=== PATIENT | female | born 1980 | race Caucasian/White ===

== ENCOUNTER → 2023-12-27 08:16 | Outpatient (REF) | payer OTHER, SELFPAY | LOC: HWWDC 08:16 | PROVIDERS: ATTENDING PHYSICIAN Obstetrics & Gynecology; FAMILY PHYSICIAN Internal Medicine | DX: Z12.31 Encounter for screening mammogram for malignant neoplasm of breast (principal) | CPT/HCPCS: 77063; 77067 ==

== ENCOUNTER 2024-08-23 17:44 | Emergency (ER) | payer OTHER, SELFPAY ==
[2024-08-23 17:45] VITALS: BP 156/98
[2024-08-23 19:00] VITALS: BP 119/75
--- NOTE | 2024-08-23 19:29 | ED.GENMED ---
History of Present Illness
General
Chief Complaint: Musculo-Skeletal Complaint
Source: patient
Exam Limitations: none
Time Seen by Provider: 08/23/24 18:31
Nursing documentation reviewed up to this point in time: agreed with
History of Present Illness
History of Present Illness:
44-year-old female presenting to the emergency department today after her dog jumped into her nose prior to arrival causing a nosebleed and a frontal headache. Denies loss of consciousness no numbness weakness or neck pain. Bleeding has resolved
upon arrival here to the ER.
Past History
Past History
ED Past Medical History: None
ED Past Surgical History: None
Social History
Tobacco: Non-smoker
Alcohol: None
Drug: None
Personal:
Living: with family
Review of Systems
Review of Systems
Allergies reviewed?: Yes
All Other Systems: ROS reviewed and negative except as documented in HPI and ROS
Phy Exam
Physical Exam
Physical Exam:
GENERAL: Alert , in no apparent distress
EYE: pupils equal and reactive
NECK: Supple, no significant adenopathy. No posterior neck pain good range of motion of the head without significant midline posterior neck pain.
ENT: Small cut to the nasal septum bilaterally with no active bleeding small clot. No nasal septal hematoma nasal bridge is midline minimal tenderness to the area normal extraocular movements no tenderness at the orbital rim. o/p clr, mmm.
CARDIAC: Regular rate and rhythm .
LUNGS: Clear breath sounds bilaterally, no acute respiratory distress, no wheezes/rales/rhonchi
ABDOMEN: Soft, without focal tenderness, no r/g, no cvat
NEUROLOGICAL: Alert and oriented, no focal neuro deficits
SKIN: Warm and dry, skin intact.
MUSCULOSKELETAL: No edema, well perfused.
PSYCH: Normal and appropriate interaction.
Course
Vital Signs
Initial and Last Documented VS:
Initial Vital Signs
Temp Pulse Resp BP Pulse Ox
98.4 F 85 16 156/98 100
08/23/24 17:45 08/23/24 17:45 08/23/24 17:45 08/23/24 17:45 08/23/24 17:45
Last Documented Vital Signs
Temp Pulse Resp BP Pulse Ox
98.4 F 84 18 119/75 99
08/23/24 17:45 08/23/24 19:00 08/23/24 19:00 08/23/24 19:00 08/23/24 19:00
MDM/Problems Addressed
MDM/Problems Addressed:
44-year-old female presenting to the emergency department today after dog bumped into her nose had some bleeding at the time but since has resolved. Denies any loss of consciousness numbness weakness normal neurologic evaluation no neck pain
patient is [place] head CT without tenderness. Patient does not have any symptoms consistent with significant facial fracture or significant nasal fracture. Patient appears stable for discharge at this time return precautions given.
*Critical Care Note
Total Time (30-74mins, 75-104mins- exclusive of procedures): Not Applicable
ED Attending Note
-
Portions of this chart may have been created with voice recognition software.� Occasional wrong word or��sound alike� substitutions may have occurred due to the inherent limitations of voice recognition software.
Discharge Plan
Departure
Patient Disposition: Home (Routine Discharge)
Date of Disposition: 08/23/24
Time of Disposition: 19:39
Patient with high blood pressure during this ER visit?: No
Condition: Good
Covid-19: Not Applicable
Discharge Problem:
Injury of nose
Instructions: Contusion (DC)
Prescriptions:
No Action
diphenhydramine HCl [Banophen] 50 MG capsule
50 mg PO Q6HPRN PRN (Reason: allergic reaction)
prednisone 10 MG tablets,dose pack
10 mg PO Daily Qty: 1 0RF
Rx Instructions:
60mg x 1 day, 50mg x 1 day, 40mg x 1 day, 30mg x 1 day, 20mg x 1 day, 10mg x 1 day
epinephrine [EpiPen] 0.3 MG/0.3/SYRINGE auto-injector
0.3 mg IM ONCE Qty: 1 0RF
Referrals:
Vinicius Zurita MD [Family Provider] -
Activity Restrictions/Additional Instructions:
You came to the emergency department today with concerns of facial injury from your dog. Here you have a reassuring assessment. Please rest and ice over the next few days as symptoms will hopefully improve. Return to the emergency department for
any worsening, new or concerning symptoms.
Interventions
Interventions:
*Risk Screen - Suicide Last Done: 08/23/24 17:45
*General Assessment Last Done: 08/23/24 19:08
*Neglect/Abuse Screening Last Done: 08/23/24 17:45
*ED COVID-19 Vaccine History Last Done: 08/23/24 19:08
ED-Musculoskeletal Assessment Last Done: 08/23/24 19:01
Discharge Date and Time
Print Language: [place]
[2024-08-23 19:47] VITALS: BP 119/75
== END 2024-08-23 19:48 | disposition home or self-care (01) ==
LOC: EMR 17:44
PROVIDERS: EMERGENCY PHYSICIAN Emergency Medicine; FAMILY PHYSICIAN Internal Medicine
DX: S09.92XA Unspecified injury of nose, initial encounter (principal); W54.1XXA Struck by dog, initial encounter
CPT/HCPCS: 99282

== ENCOUNTER 2025-07-05 06:16 | Day surgery (SDC) | payer OTHER, SELFPAY | END 2025-07-05 09:57 | disposition home or self-care (01) | LOC: GI 06:16 | PROVIDERS: ATTENDING PHYSICIAN Internal Medicine Gastroenterology; FAMILY PHYSICIAN Psychiatry & Neurology Neurology | DX: Z12.11 Encounter for screening for malignant neoplasm of colon (principal); K64.8 Other hemorrhoids; R12 Heartburn; K31.7 Polyp of stomach and duodenum; K31.89 Other diseases of stomach and duodenum; Z86.0100 Personal history of colon polyps, unspecified | CPT/HCPCS: 43239; G0105; 88305; 88342 ==

== ENCOUNTER → 2025-08-04 07:34 | Outpatient (REF) | payer OTHER, SELFPAY | LOC: HWRAD 07:34 | PROVIDERS: ATTENDING PHYSICIAN Internal Medicine Gastroenterology; FAMILY PHYSICIAN Internal Medicine | DX: R10.0 Acute abdomen (principal) | CPT/HCPCS: 76700 ==